=== PATIENT | male | born 1960 | race African-American/Black ===

== ENCOUNTER 2022-12-13 16:30 | Inpatient (IN) | payer SELFPAY ==
[2022-12-13] MEDS ORDERED: NOREPINEPHRINE 8 MG/250 ML-D5W 250 ML ONE (16:33)
[2022-12-13 16:53] LABS: #Lymphocytes 0.9 thou/uL (1.20-3.40); #Monocytes 0.8 thou/uL (0.11-0.59); #Neutrophils 13.7 thou/uL (1.40-6.50); %Basophils 0.1 % (0.0-1.0); %Eosinophils 0.1 % (0.0-10.0); %Lymphocytes 5.7 % (21.0-51.0); %Monocytes 5.3 % (0.0-10.0); %Neutrophils 88.9 % (42.0-75.0); Hemoglobin 13.9 g/dL (14.0-18.0); Mean Corpuscular HGB CONC 34.2 g/dL (32.0-36.0); Mean Corpuscular Hemoglobin 32.9 pg (27.0-31.0); Mean Corpuscular Volume 96.2 fl (78.0-98.0); Mean Platelet Volume 8.2 fL (7.4-10.4); Platelet Count 247 10x3/uL (130-400); RBC Distribution Width 11.8 % (11.5-14.5); Red Blood Cell (RBC) Count 4.24 mill/uL (4.70-6.10); White Blood Cell (WBC) Count 15.4 10x3/uL (4.8-10.8)
[2022-12-13] MEDS ORDERED: Ondansetron PF 4 MG/2 ML Vial ONE (16:55)
[2022-12-13 16:58] LABS: Actual Bicarbonate (HCO3a) 24.1 mEq/L (22-28); Analyzer IN Cardio ER; Base Excess (BEa) -0.6 mEq/L (-2.0 to +3.0); CO2 Tension 40.2 mmHg (35.0-45.0); Calcium, Ionized (arterial) 1.13 mmol/L (1.12-1.30); Carboxyhemoglobin (COHb) 1.4 gm% (0.0-3.0); Hematocrit-ABG 42 % (42.0-52.0); Hemoglobin (Hb) 14.3 g/dL (14.0-18.0); O2 Tension (PaO2), arterial 280.8 mmHg (> 80.0); Potassium - ABG Lab 3.49 mmol/L (3.70-5.30); pH, Arterial 7.396 (7.35-7.45)
[2022-12-13 17:01] LABS: Puncture Site RRA
[2022-12-13 17:02] LABS: Bilirubin Negative (Negative); Blood, Urine Negative (Negative); Clarity Clear (Clear); Glucose, Urine (Dipstick) 30 mg/dL (Negative); Ketone, Urine Negative (Negative); Leukocyte Negative Leu/uL (Negative); Nitrite Negative (Negative); Protein, Urine (Dipstick) 10 mg/dL (Neg-Trace); Specific Gravity, Urine 1.022 (1.002-1.036); Urobilinogen Normal mg/dL (Less than 2)
[2022-12-13 17:03] LABS: PTT 27.2 sec (22.9-36.1); Prothrombin Time 13.4 sec (12.0-14.7)
[2022-12-13 17:08] LABS: Amphetamine Detected (NotDetected); Barbiturates Screen Not Detected (NotDetected); Benzodiazepine Screen Not Detected (NotDetected); Cocaine Metabolite Screen Detected (NotDetected); Methadone Not Detected (NotDetected); Methamphetamine Detected (NotDetected); Opiate Screen Not Detected (NotDetected); Oxycodone Screen Not Detected (NotDetected); Phencyclidine (PCP) Not Detected (NotDetected); THC/Cannabinoid Screen Not Detected (NotDetected); Tricyclic Screen Detected (NotDetected)
[2022-12-13] MEDS ORDERED: fentaNYL 50 mcg/mL 1 mL Vial ONE (17:10)
[2022-12-13 17:11] LABS: Acetaminophen Less than 10.0 mcg/mL (10.0-30.0); Alcohol Less than 10 mg/dL (Less than 10); Salicylate Less than 8.0 mg/dL (15.0-30.0)
[2022-12-13] MEDS ORDERED: Electrolyte Replacement Protocol FS PRN (17:13)
[2022-12-13] MEDS ORDERED: Ventilator Sedation Protocol FS ONE (17:13)
[2022-12-13] MEDS ORDERED: Midazolam HCl 2 mg/2 ml Vial ONE (17:13)
[2022-12-13 17:14] LABS: ALT (SGPT) Less than 7 U/L (8-55); AST (SGOT) 11 U/L (5-34); Albumin 3.4 g/dL (3.4-4.8); Alkaline Phosphatase 57 U/L (40-110); Anion Gap 13 mmol/L (10-20); BUN (Urea Nitrogen) 12 mg/dL (8.4-25.7); Bilirubin, Total 0.4 mg/dL (0.2-1.2); Calc. Creatinine Clearance 0 mL/min (70-130); Calcium 8.1 mg/dL (7.8-10.44); Carbon Dioxide 23 mmol/L (23-31); Chloride 107 mmol/L (98-107); Estimated GFR 100; Globulin 2.4 g/dL (2.4-3.5); Glucose 171 mg/dL (80-115); Magnesium 1.6 mg/dL (1.6-2.6); Potassium 3.7 mmol/L (3.5-5.1); Protein, Total 5.8 g/dL (5.8-8.1); Sodium 139 mmol/L (136-145)
[2022-12-13] MEDS ORDERED: NOREPINEPHRINE 8 MG/250 ML-D5W 250 ML IVPB SCH (17:15)
[2022-12-13] MEDS ORDERED: Fentanyl CADD 100 ML IV SCH (17:15)
[2022-12-13] MEDS ORDERED: Lorazepam 2 MG/ML VIAL SLOW IVP PRN (17:30)
[2022-12-13] MEDS ORDERED: Fentanyl BOLUS 250 ML IVPB PRN (17:30)
[2022-12-13] MEDS ORDERED: Propofol BOLUS 1,000 MG/100 ML VIAL IV PRN (17:30)
[2022-12-13] MEDS ORDERED: Magnesium 2 GM/50 ML(in water) 2 GM in Premix Bag 1 BAG IVPB SCH (17:30)
[2022-12-13] MEDS ORDERED: DISCONTINUE PREVIOUS NARCOTIC PAIN MEDICATIONS AND BENZODIAZEPINES FS SCH (17:30)
[2022-12-13] MEDS ORDERED: Morphine 2 MG/ML VIAL SLOW IVP PRN (17:30)
[2022-12-13] MEDS ORDERED: Propofol 1,000 MG/100 ML VIAL IV ONE (18:15)
[2022-12-13] MEDS ORDERED: Acetaminophen 650 MG Suppository PR PRN (19:05)
[2022-12-13 19:36] VITALS: BMI 23.9
[2022-12-13] MEDS: Lactated Ringer's 1,000 ML IV SCH (21:01)
[2022-12-14] MEDS: Lactated Ringer's 1,000 ML IV SCH ×4 (03:55→21:56)
[2022-12-14 04:31] LABS: #Eosinphils 0.1 thou/uL (0.0-0.7); #Lymphocytes 1.8 thou/uL (1.20-3.40); #Monocytes 0.7 thou/uL (0.11-0.59); #Neutrophils 5.2 thou/uL (1.40-6.50); %Basophils 0.4 % (0.0-1.0); %Eosinophils 1.3 % (0.0-10.0); %Lymphocytes 23.5 % (21.0-51.0); %Monocytes 8.3 % (0.0-10.0); %Neutrophils 66.6 % (42.0-75.0); Hemoglobin 12.4 g/dL (14.0-18.0); Mean Corpuscular HGB CONC 33.5 g/dL (32.0-36.0); Mean Corpuscular Volume 95.6 fl (78.0-98.0); Mean Platelet Volume 8.1 fL (7.4-10.4); Platelet Count 196 10x3/uL (130-400); RBC Distribution Width 11.8 % (11.5-14.5); Red Blood Cell (RBC) Count 3.87 mill/uL (4.70-6.10); White Blood Cell (WBC) Count 7.8 10x3/uL (4.8-10.8)
[2022-12-14 04:47] LABS: Anion Gap 9 mmol/L (10-20); BUN (Urea Nitrogen) 9 mg/dL (8.4-25.7); Calc. Creatinine Clearance 116 mL/min (70-130); Calcium 8.3 mg/dL (7.8-10.44); Carbon Dioxide 27 mmol/L (23-31); Chloride 107 mmol/L (98-107); Estimated GFR 102; Glucose 88 mg/dL (80-115); Potassium 3.5 mmol/L (3.5-5.1); Sodium 139 mmol/L (136-145)
[2022-12-14 06:48] LABS: Actual Bicarbonate (HCO3a) 27.9 mEq/L (22-28); Base Excess (BEa) 3.7 mEq/L (-2.0 to +3.0); CO2 Tension 40.9 mmHg (35.0-45.0); Calcium, Ionized (arterial) 1.15 mmol/L (1.12-1.30); Carboxyhemoglobin (COHb) 0.9 gm% (0.0-3.0); Hematocrit-ABG 39 % (42.0-52.0); Hemoglobin (Hb) 13.1 g/dL (14.0-18.0); O2 Tension (PaO2), arterial 93.3 mmHg (> 80.0); Potassium - ABG Lab 3.47 mmol/L (3.70-5.30); pH, Arterial 7.452 (7.35-7.45)
[2022-12-14 06:50] LABS: ALV-art Gradient 140.775 mmHg (0-20); Puncture Site RBA
[2022-12-14] MEDS: Potassium Chloride 20 MEQ in Premix Bag 1 BAG IVPB SCH ×2 (08:18→09:30)
[2022-12-14] MEDS: Pantoprazole 40 MG VIAL IVP SCH (08:18)
[2022-12-14] MEDS: Propofol 1,000 MG/100 ML VIAL IV PRN (09:35)
[2022-12-14] MEDS: methylPREDNISolone Sod Succ 40 MG VIAL IVP SCH ×3 (11:35→22:03)
[2022-12-14] MEDS ORDERED: methylPREDNISolone Sod Succ 40 MG VIAL ONE (21:25)
[2022-12-15] MEDS: Propofol 1,000 MG/100 ML VIAL IV PRN (03:25)
[2022-12-15 05:11] LABS: #Lymphocytes 0.6 thou/uL (1.20-3.40); #Monocytes 0.9 thou/uL (0.11-0.59); %Eosinophils 0.1 % (0.0-10.0); %Lymphocytes 4.1 % (21.0-51.0); %Monocytes 5.9 % (0.0-10.0); Hemoglobin 12.7 g/dL (14.0-18.0); Mean Corpuscular HGB CONC 33.9 g/dL (32.0-36.0); Mean Corpuscular Hemoglobin 32.6 pg (27.0-31.0); Mean Corpuscular Volume 96.2 fl (78.0-98.0); Mean Platelet Volume 8.1 fL (7.4-10.4); Platelet Count 192 10x3/uL (130-400); RBC Distribution Width 11.8 % (11.5-14.5); Red Blood Cell (RBC) Count 3.91 mill/uL (4.70-6.10); White Blood Cell (WBC) Count 15.5 10x3/uL (4.8-10.8)
[2022-12-15 05:31] LABS: Anion Gap 10 mmol/L (10-20); BUN (Urea Nitrogen) 10 mg/dL (8.4-25.7); Calc. Creatinine Clearance 108 mL/min (70-130); Calcium 8.5 mg/dL (7.8-10.44); Carbon Dioxide 26 mmol/L (23-31); Chloride 104 mmol/L (98-107); Estimated GFR 100; Glucose 115 mg/dL (80-115); Potassium 4.4 mmol/L (3.5-5.1); Sodium 136 mmol/L (136-145)
[2022-12-15] MEDS: methylPREDNISolone Sod Succ 40 MG VIAL IVP SCH ×2 (05:35→12:13)
[2022-12-15] MEDS: Pantoprazole 40 MG VIAL IVP SCH (09:24)
[2022-12-15] MEDS: Lactated Ringer's 1,000 ML IV SCH ×2 (09:24→18:42)
[2022-12-15] MEDS ORDERED: Dexmedetomidine 400 MCG, Admixture Fee 1 EACH in Sodium Chloride 0.9% 96 ML IVPB SCH (09:30)
[2022-12-15 16:59] VITALS: TEMP 98.5
== END 2022-12-15 19:19 | disposition home or self-care (01) | DRG 917 ==
LOC: ERS 16:30 → CCU 18:55
PROVIDERS: ADMIT Student in an Organized Health Care Education/Training Program; ATTEND Internal Medicine
PROC: 5A1945Z Respiratory Ventilation, 24-96 Consecutive Hours (ICD-10-PCS; principal; 2022-12-13)
PROC: 0BH17EZ Insertion of Endotracheal Airway into Trachea, Via Natural or Artificial Opening (ICD-10-PCS; 2022-12-13)
PROC: 0D9770Z Drainage of Stomach, Pylorus with Drainage Device, Via Natural or Artificial Opening (ICD-10-PCS; 2022-12-13)
PROC: 3E043XZ Introduction of Vasopressor into Central Vein, Percutaneous Approach (ICD-10-PCS; 2022-12-13)
PROC: 02HV33Z Insertion of Infusion Device into Superior Vena Cava, Percutaneous Approach (ICD-10-PCS; 2022-12-13)
PROC: B548ZZA Ultrasonography of Superior Vena Cava, Guidance (ICD-10-PCS; 2022-12-13)
DX: T43.3X1A Poisoning by phenothiazine antipsychotics and neuroleptics, accidental (unintentional), initial encounter (principal); J96.01 Acute respiratory failure with hypoxia; I95.9 Hypotension, unspecified; Z78.1 Physical restraint status
CPT/HCPCS: 31500; 36556; 36600; 51702; 70450; 71045; 80048; 80053; 80306; 80307; 81003; 82550; 82805; 83605; 83735; 83880; 84484; 85025; 85610; 85730; 87040; 93005; 93010; 94002; 94003; 94760; 96365; 96366; 96367; 96375; C9113; J1650; J2060; J2250; J2405; J2704; J2920; J3010; J3475; J3480; J3490; J7120